=== PATIENT | female | born 1985 | race Two or more races ===

== ENCOUNTER 2016-09-26 19:05 | Emergency (ER) | payer MEDICAID ==
--- NOTE | 2016-09-27 07:44 | RAD ---
FOREARM RIGHT HISTORY: Ground-level fall. COMPARISONS: None. FINDINGS: 2 views of the right forearm were performed demonstrating intact osseous structures. The proximal and distal joint spaces are well-maintained. No focal soft tissue abnormalities are seen. IMPRESSION: 1. Negative views of the right forearm.
--- NOTE | 2016-09-27 07:45 | RAD ---
WRIST- RIGHT 3 VIEWS HISTORY: Ground-level fall. COMPARISONS: None. FINDINGS: 3 views of the right wrist were performed demonstrating normal bony mineralization. There is a lucency with a subtle surrounding sclerotic margin evident involving the mid to proximal portion of the scaphoid, likely reflecting carpal cyst formation. No definitive fracture is seen. The carpal alignment is normal. No focal soft tissue abnormalities are seen. IMPRESSION: 1. A probable carpal cyst within the mid to proximal portion of the scaphoid. No definitive fracture is seen.
== END 2016-09-26 20:19 | disposition home or self-care (01) ==
LOC: ED 19:05
DX: S63.501A Unspecified sprain of right wrist, initial encounter (principal); W19.XXXA Unspecified fall, initial encounter; Z79.899 Other long term (current) drug therapy

== ENCOUNTER 2016-10-24 09:30 | Emergency (ER) | payer MEDICAID ==
[2016-10-24 10:02] LABS: HCG,QUALITATIVE URINE NEGATIVE
[2016-10-24 10:03] LABS: URINE APPEARANCE CLEAR; URINE BILIRUBIN NEGATIVE (NEGATIVE); URINE BLOOD NEGATIVE (NEGATIVE); URINE COLOR YELLOW; URINE GLUCOSE (UA) NEGATIVE (NEGATIVE); URINE LEUKOCYTE ESTERASE NEGATIVE (NEGATIVE); URINE NITRITE NEGATIVE (NEGATIVE); URINE PROTEIN NEGATIVE (NEGATIVE); URINE UROBILINOGEN NORMAL (0-1 mg/dl)
--- NOTE | 2016-10-24 11:16 | CT ---
Name: ALEIDA TILLEY Exam: Noncontrast renal stone CT Comparison: None Clinical History: Left flank pain Procedure: Helical CT using multidetector technique was applied to the abdomen and pelvis without contrast. Sagittal, axial and coronal reconstructions were obtained. An automated dose reduction technique was used to minimize patient radiation dose. Findings: CT abdomen (noncontrast): Lung bases are clear. Heart is not enlarged. There is no pericardial effusion. Noncontrast images of the liver, gallbladder, pancreas, spleen, left adrenal gland, kidneys, aorta, IVC and portal vein are normal. There is calcification within normal size right adrenal gland and prior hemorrhage is favored. Stomach, small bowel and colon are within normal limits. There is no free air, free fluid or suspicious adenopathy. Small fat filled umbilical hernia is present. Regional skeleton is normal. CT pelvis (noncontrast): Bladder is nearly empty. Uterus is prominent. Ovaries are thought to be symmetric. Sigmoid diverticulosis is present without current evidence for diverticulitis. Small bowel and appendix are normal. There is no free air, free fluid or suspicious adenopathy. Impression: 1. No genitourinary calcification or obstruction 2. Mild distal colonic stenosis without current evidence for diverticulitis 3. No appendicitis or small bowel obstruction 4. Calcification of the right adrenal gland compatible with remote hemorrhage 5. Small fat filled umbilical hernia Note: The above report was uploaded to [facility]'s electronic medical records system at 1112 hours.
[2016-10-26 12:42] LABS: CHLAMYDIA BD Negative (Negative); N.GONORRHOEAE BD Negative (Negative); SOURCE Urine (())
== END 2016-10-24 12:08 | disposition home or self-care (01) ==
LOC: ED 09:30
DX: M54.5 Low back pain (principal); K42.9 Umbilical hernia without obstruction or gangrene